=== PATIENT | female | born 1945 | race African-American/Black ===

== ENCOUNTER 2018-08-26 20:28 | Inpatient (IN) | payer MEDICARE, MEDICAID ==
[~2018-08-26] VITALS: Ht 157.5 cm; Wt 89.8 kg
--- NOTE | ~2018-08-26 | CON ---
[address] [address] CONSULTATION Name: PEYMAN HIRSCH Room: [address] IN M.R.#: [id number] Admission: 08/26/18 Attend Phys: Yohan Shelby Discharge: Date of : 45 Report #: [id number] THIS REPORT FOR: //name// CC: Hilario Amezcua REASON FOR CONSULTATION: Elevated BUN and creatinine. HISTORY OF PRESENT ILLNESS: The patient is a 73-year-old -[place] female with multiple medical histories, who was recently admitted at [facility] on 07/15/2018, as a transfer from care home with concern of worsening left heel infection/skin rash. Prior to that, also she had hospitalization at [facility] in 06/2017. She was discharged with antibiotics and wound VAC for the left heel infection. Returned back there with same issue with worsening rash, thought to be a drug allergy. At that time, she also developed acute kidney injury with a peak creatinine of 5.8 with GFR of 9, from a baseline creatinine of about 2-2.5. She was given IV fluid with improvement in her creatinine to 2.7/GFR 21 at the time of discharge from [facility] on 07/21/2017. She presented again here because of worsening white cell count at the care home and chemistry here showed that she has elevated creatinine of 4.2, hence our consultation. Previously, she was seen by Dr. Real of [facility]. She states that she has been hydrating herself, no nausea, vomiting or diarrhea, no fever or chills at this time, has not noticed any decrease in the urine output. PAST MEDICAL HISTORY: As mentioned above, history of chronic kidney disease stage 4, baseline creatinine of 2-2.5 range, diastolic heart failure, hypertension, hyperlipidemia, diabetes mellitus, CVA with residual left hemiparesis, anemia, atrial fibrillation, gastroesophageal reflux disease, and dermatitis. ALLERGIES: THE PATIENT IS ALLERGIC TO PENICILLIN AND ZOSYN. SENIOR LIVING MEDICATIONS: Aspirin 81 mg daily, erythropoietin chris 20,000 units twice weekly, isosorbide mononitrate 30 mg daily, melatonin 3 mg at bedtime, metolazone 2.5 mg daily, torsemide 20 mg b.i.d., Lantus 12 units at bedtime, Benadryl 25 mg q.6 hours as needed, atorvastatin 20 mg daily, Baclofen 10 mg t.i.d., Humalog premeals, carvedilol 12.5 mg b.i.d., and hydralazine 50 mg daily. REVIEW OF SYSTEMS: A 12-point review of system was done and pertinent positives are mentioned in the history of present illness. All other systems are reviewed and negative. PHYSICAL EXAMINATION: VITAL SIGNS: Her blood pressure is 145/58, pulse rate of 81, respiratory rate of 18, temperature 98.4 and saturation is 97% [place] [address] CONSULTATION Name: PEYMAN HIRSCH Room: [address]#: [id number] Admission: 08/26/18 Attend Phys: Yohan Shelby Discharge: Date of : 45 Report #: [id number] GENERAL: She does not appear to be in any respiratory distress. HEENT: Normocephalic, atraumatic head. [place] conjunctivae, anicteric sclerae. NECK: No JVD. Trachea midline. LUNGS: Sounds are diminished bilaterally. No wheezing. ABDOMEN: Soft, nontender, positive bowel sounds. EXTREMITIES: Showed trace edema. She has left foot wound dressing in place. NEUROLOGIC: She is alert, oriented x 3. LABORATORY DATA: Reviewed, has a sodium of 138, potassium 3.6, chloride 98, carbon dioxide 26, BUN and creatinine are 94 and 4.2, GFR of 13, lactic acid 1.1. White cell count of 22.6, hemoglobin 8.9, and platelet count is 228. IMPRESSION: 1. Acute kidney injury, on underlying chronic kidney disease stage 4, baseline creatinine 2-2.5 range. She has recurrent acute kidney injuries, most recent one being in the beginning of July 2017, at which time she had a peak creatinine of 5.8 with GFR of only 9. Acute kidney injury, likely prerenal azotemia/acute tubular necrosis, need to exclude also post-infectious glomerular nephritis. 2. Left heel infection. 3. Anemia of chronic kidney disease. 4. Essential hypertension. 5. Chronic diastolic heart failure. 6. Hyperlipidemia. 7. Diabetes mellitus type 2. 8. Cerebrovascular accident with residual hemiparesis. 9. Leukocytosis. PLAN: Records from [facility] reviewed. She has had a recent complete workup of renal insufficiency including urinalysis, which showed proteinuria and hematuria. Renal ultrasound on 07/16/2018 showed a small right cyst with no hydronephrosis. Encouraged oral hydration. Given history of her CHF, we will hold off on IV fluid for now, but we will discontinue also her diuretics. Avoid nephrotoxins. Resume Procrit for her anemia. Check iron studies. No indication for hemodialysis at present. We will continue to monitor and further recommendations to follow. By: [id number] Salas MD /scooter
--- NOTE | ~2018-08-26 | CON ---
[address] [address] CONSULTATION Name: TORREYPEYMAN Yohan Room: [address] IN M.R.#: [id number] Admission: 08/26/18 Attend Phys: Yohan Shelby Discharge: Date of : 45 Report #: [id number] THIS REPORT FOR: //name// CC: Hilario Amezcua CHIEF COMPLAINT: Followup, ulceration to left posterior calcaneus with type 2 diabetes mellitus, peripheral arterial disease with prior deep tissue infection. Arterial Doppler shows monophasic flow to the left lower extremity with low resistance. No signs of focal velocity elevation. Right distal femoral to anterior tibial artery graft is widely patent. I reviewed vascular surgery's note, awaiting medical records from [facility] regarding prior vascular studies. Left heel culture growing gram-positive cocci. Blood cultures negative x 2. She is on parenteral ceftriaxone with good tolerance. She has remained afebrile, alert and oriented with no pain to either extremity. She has remained nonambulatory with PRAFO boots to offload her heels. LABORATORY DATA: WBC 18.7, RBC 3.16, hemoglobin 8.7, hematocrit 27.6, platelets 219. BUN 90, creatinine 3.9, glucose 120. PHYSICAL EXAMINATION: Left posterior calcaneal wound appears stable with no necrosis or signs of acute vascular embarrassment to the periwound. The wound bed is mostly red granulation with some overlying yellowish slough. There is no exposed bone or tendon. There is no erythema or jeff cellulitis. IMPRESSION: Diabetic foot ulceration to left posterior calcaneus, no indication for surgery. PLAN: I ordered x-rays of the left calcaneus to have a baseline study. I do not anticipate any further surgical debridement. Continue topical wound care with Aquacel Ag and offloading in a PRAFO boot. Maximize nutrition and glycemic control. Vascular Surgery to further evaluate the patient's peripheral arterial disease. I will follow up with the patient at [facility] next Saturday afternoon with Dr. Franklin. By: 0730 [id number] Kenny DPM /scooter
--- NOTE | ~2018-08-26 | CON ---
[address] [address] CONSULTATION Name: PEYMAN HIRSCH Room: [address] IN .R.#: [id number] Admission: 08/26/18 Attend Phys: Yohan Shelby Discharge: Date of : 45 Report #: [id number] THIS REPORT FOR: //name// CC: Hilario Amezcua HISTORY OF PRESENT ILLNESS: The patient is a 73-year-old female admitted to the Emergency Department for worsening leukocytosis with left posterior calcaneal foot wound. She has a full-thickness diabetic foot ulceration to the left posterior calcaneus of several months' duration. She has been receiving care from [facility] [place], she cannot name the physicians involved in her care. She states she had prior debridement of necrotic tissue, and she states the bone was not infected per her understanding. She denies acute symptoms such as fevers, chills, nausea, malaise, body aches, dizziness, shortness of breath or chest pain. She is mostly nonweightbearing to the left foot, although she has stood on it and still appose offloading shoe for transfers and short distances. She is scheduled for arterial duplex Doppler this afternoon. Blood cultures and foot wound cultures are pending. PAST MEDICAL HISTORY: Chronic kidney disease stage III, type 2 diabetes mellitus, hypertension, hyperlipidemia, anemia, AFib, GERD, left heel ulceration, and urinary retention. ALLERGIES: PENICILLIN AND ZOSYN. LABORATORY DATA: WBC 22.6, RBC 3.21, hemoglobin 8.9, hematocrit 27.9, and platelets 228. BUN 94, creatinine 4.2 and glucose 177. Albumin 3.1. Urinalysis pending ____. PHYSICAL EXAMINATION: Large full thickness ulceration to left posterior calcaneus, Friend stage 2. The wound is roughly 6.0 x 6.0 x 0.3 cm. It is covered with red granulation with some pale overlying slough. There is no exposed bone or tendon. There is no inflammation, erythema or cardinal signs of infection. The wound margins are viable with capillary refill of roughly 1 sec. She has faintly palpable dorsalis pedis and posterior tibial pulses bilaterally. No other wounds noticed. IMPRESSION: Ulceration of left posterior calcaneus, type 2 diabetes mellitus with peripheral neuropathy and end-stage renal disease. PLAN: The wound was cleansed and redressed with Aquacel Ag, ABD, Kerlix and Victor Manuel. The patient offload in PRA boot and remain strictly nonweightbearing. We will review. No clinical infection at this time, [place] [address] CONSULTATION Name: PEYMAN HIRSCH Room: [address] IN M.R.#: [id number] Admission: 08/26/18 Attend Phys: Yohan Shelby Discharge: Date of : 45 Report #: [id number] osteomyelitis. I will order radiographs of the calcaneus and review her duplex Doppler tomorrow. I do not anticipate surgical debridement at this point. By: 1534 [id number] Kenny DPM /nt
[2018-08-26 20:31] VITALS: BP 145/58
[2018-08-26 21:16] LABS: HEMATOCRIT 27.9 % (37.0-47.0); HEMOGLOBIN 8.9 gm/dL (12.0-15.0); MCH 27.6 pg (26.0-34.0); MCHC 31.8 g/dL (28.0-37.0); MCV 86.7 fL (80.0-100.0); MPV 9.4 fl. (7.2-11.1); NUCLEATED RBCS 0 /100WBC; PLATELET COUNT* 228 thou/uL (150-400); RBC 3.21 mil/uL (4.20-5.00); RDW-CV 16.6 % (10.5-14.5); WBC 22.6 thou/uL (4.0-11.0)
[2018-08-26 21:26] LABS: CALCIUM 8.5 mg/dL (8.5-10.1); CREATININE 4.2 mg/dL (0.6-1.3); POTASSIUM 3.6 mmol/L (3.5-5.1)
[2018-08-26 21:31] LABS: ALBUMIN 3.1 g/dL (3.4-5.0); TOTAL BILIRUBIN 0.4 mg/dL (<0.1-1.0); TOTAL PROTEIN 8.4 g/dL (6.4-8.2)
[2018-08-26 21:39] LABS: ABSOLUTE EOSINOPHILS 0.9 thou/uL (0.0-0.7); ABSOLUTE LYMPHOCYTES 1.8 thou/uL (0.8-5.3); ABSOLUTE MONOCYTES 1.1 thou/uL (0.0-1.2); ABSOLUTE NEUTROPHILS 18.8 thou/uL (1.6-8.1)
[2018-08-26 21:40] LABS: ANISOCYTOSIS Occasional; LARGE PLATELETS RARE; PLATELET ESTIMATE ADEQUATE
[2018-08-26] MEDS ORDERED: TYLENOL325 MG PO (21:43)
[2018-08-26] MEDS ORDERED: ALBUTEROL2.5 MG/31 INH (21:44)
[2018-08-26] MEDS ORDERED: VITAMINC500 PO (21:45)
[2018-08-26] MEDS ORDERED: EPOGEN20000 UNI2 INJECTION (21:45)
[2018-08-26] MEDS ORDERED: LIORESAL 10 MG10 MG PO (21:45)
[2018-08-26] MEDS ORDERED: IMDUR 30 MG TAB30 M1 PO (21:45)
[2018-08-26] MEDS ORDERED: ASPIR 8181 MG PO (21:45)
[2018-08-26] MEDS ORDERED: METOLAZONE 2.52.5 MG PO (21:46)
[2018-08-26] MEDS ORDERED: DEMADEX20 MG PO (21:46)
[2018-08-26] MEDS ORDERED: MELATIN3 MG PO (21:46)
[2018-08-26] MEDS ORDERED: TRIAMCINOLONE A80 G2 TOP (21:46)
[2018-08-26] MEDS ORDERED: HUMALOG100 UNIT/1 SUBQ (21:47)
[2018-08-26] MEDS ORDERED: BENADRYL25 MG PO (21:47)
[2018-08-26] MEDS ORDERED: HYDROXYZINE HCL25 M1 PO (21:47)
[2018-08-26] MEDS ORDERED: LANTUS100 UNIT/M SUBQ (21:47)
[2018-08-26] MEDS ORDERED: LIPITOR 20 MG T20 M1 PO (21:48)
[2018-08-26] MEDS ORDERED: CLARITIN10 MG PO (21:48)
[2018-08-26] MEDS ORDERED: HYDRALAZINE 5050 MG PO (21:48)
[2018-08-26] MEDS ORDERED: CARVEDILOL12.5 MG PO (21:48)
[2018-08-26 23:41] VITALS: BP 144/67
[2018-08-27] VITALS: BP 117/54
--- NOTE | 2018-08-27 02:07 | NUR ---
0000 ALERT AND ORIENTED X 4 FEMALE TO BED 101 BY WHEELCHAIR FROM ER IN STABLE CONDITION. TRANSFERED TO BED WITH 2 ASSIST STAND PIVOT TO MAINTAIN NWB LEFT HEEL. VITAL SIGNS STABLE. ADMISSION ROUTINES IN PROGRESS. CONTINUE TO MONITOR.
--- NOTE | 2018-08-27 05:00 | NUR ---
PATIENT HAS REMAINED ALERT AND ORIENTED X 4 THROUGHOUT THE SHIFT AND RESTING QUIETLY ON HOURLY ROUNDS. TURNED Q2H. HEELS ELEVATED OFF OF BED. INC OF URINE. CHANGED WITH TURNS. HOME MED LIST UPDATED IN [facility] FOR PHYSICIAN REVIEW. CONSULTS TODAY FOR WOUND AND NEPHROLOGY. CONTINUE TO MONITOR.
[2018-08-27 08:05] VITALS: BP 146/47
--- NOTE | 2018-08-27 10:59 | NUR ---
WOUND NURSE-PATIENT ADMITTED LAST EVENING ON 08/26/18 WITH DIABETIC FOOT ULCER AND LEUKOCYTOSIS. PATIENT ABLE TO PROVIDE SOME HISTORY, BUT NOT CLEAR ON TIME FRAMES - HEEL WOUND DEVELOPED WHILE SHE WAS AT [facility] THEN SHE WAS TRANSFERRED TO [facility] FOR APPROXIMATELY ONE WEEK, THEN READMITTED TO [facility], AND TRANSFERRED TO [facility]. AT SOME POINT, HER HEEL WAS DEBRIDED AND A WOUND VAC APPLIED. SHE IS NON-AMBULATORY, BUT HAS BEEN TRYING TO WALK WITH THERAPY. LEFT HEEL WITH STAGE 4 PRESSURE ULCER, SHE REPORTS THAT WITH DEBRIDEMENT IT WAS DOWN TO BONE, BUT THEY DETERMINED NO INFECTION IN BONE. WOUND BASE WITH APPROXIMATELY 20% YELLOW/LUNA SLOUGH ON PALE PINK, MOIST BASE. DRAINING MODERATE AMOUNTS OF LIGHT BROWN, PURULENT, MALODOROUS DRAINAGE. SURROUNDING SKIN INTACT WITH NO ERYTHEMA, INDURATION OR FLUCTUANCE BUT EXTREMELY TENDER TO TOUCH. BOTH FEET CLEANSED WELL WITH SKIN CLEANSER, REMOVING LOOSELY ADHERENT SKIN AND DEBRIS, WITH SOME IMPROVEMENT IN APPEARANCE AND ODOR. RIGHT FOOT INTACT WITH PRIOR 5TH TOE AMPUTATION (PT NOT SURE REASON), NO OTHER OPEN OR REDDENED AREAS, WITH HEEL INTACT. PEDAL PULSES STRONGLY PALPABLE ON RIGHT, BUT VERY DIFFICULT TO PALPATE ON LEFT DUE TO CONTINUOUS TREMOR. EVENTUALLY ABLE TO AUSULTATE WEAK PEDAL PULSES ON LEFT (MARKED). DISCUSSED WT DR CRAMER, AND WOUND CULTURE OBTAINED AND SENT AFTER CLEANSING. MOISTURIZER TO INTACT SKIN, AND WOUND COVERED WITH AQUACEL AG, SECURED WTIH ROLLED GAUZE. BILATERAL HEEL BOOTS APPLIED. COCCYX AREA WITH SMALL WOUND THAT PATIENT ATTRIBUTES TO HAVING A CYST DRAINED 2 YEARS AGO, BUT APPEARS NOW A SMALL STAGE 3 PRESSURE ULCER - 1.6 X 0.6 X 0.3 CM. WOUND BASE PINK & MOIST, NO NECROTIC TISSUE OR DRAINAGE. SURROUNDING SKIN ON BUTTOCKS AND PERINEUM VERY MACERATED. PATIENT INCONTINENT OF MODERATE AMOUNT OF URINE ON ABSORBENT PAD. PERINEUM AND BUTTOCKS CLEANSED WELL WITH SKIN CLEANSER, RINSED WELL, PATTED DRY. SMALL FOAM BORDERED DRESSING TO OPEN AREA, AND MOISTURE BARRIER CREAM TO INTACT SKIN. RECOMMENDATIONS: -WOUND CARE ORDERED, POSSIBLE REAPPLICATION WOUND VAC AFTER INFECTION IMPROVES -REPOSITION EVERY 2 HOURS WITH FOAM WEDGES -BILATERAL HEEL BOOTS -ROUTINE PERINEAL CARE -ENCOURAGE HIGH PROTEIN, WELL-BALANCED DIET TO PROMOTE HEALING
--- NOTE | 2018-08-27 11:00 | EKG ---
[place] [address] ELECTROCARDIOGRAM REPORT Name: TORREYPEYMAN Yohan Room: [address] ADM IN [facility]#: [id number] Admission: 08/26/18 Attend Phys: Yohan Shelby Discharge: Date of : 45 Report #: [id number] THIS REPORT FOR: //name// [facility] ED Test Date: 2018-08-26 Test Time: 21:47:45 Pat Name: PEYMAN HIRSCH Department: Room: [facility] Gender: F Volunteer Specialist: MERCEDES : 1945 Requested By: Kamaljit Hoffman Order Number: [id number] MD: Julio Cesar Peck Measurements Intervals [place] Rate: 80 P: 64 [place]: 171 QRS: 1 QRSD: 112 T: 65 QT: 408 QTc: 471 Interpretive Statements Sinus rhythm Atrial premature complex Borderline intraventricular conduction delay No previous ECG available for comparison Electronically Signed On 08-27-2018 11:00:26 CDT by Julio Cesar Peck [email or web address] <ELECTRONICALLY SIGNED> By: Julio Cesar Peck MD, [facility] 08/27/18 1100 46 46 Julio Cesar Peck MD, FACC /EPI
--- NOTE | 2018-08-27 14:30 | NUR ---
SPOKE WITH BRIEFLY WITH PT. SHE WAS GOING OFF FLOOR FOR A TEST. CM CALLED MIO/[facility]. 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 SHE IS BEING SKILLED AT THIS TIME SINCE HER DISCHARGE FROM HOSPITAL. SHE RETURNED 12 DAYS AGO. CM WILL SEE PT.AGAIN TOMORROW.
[2018-08-27 16:33] VITALS: BP 129/48
--- NOTE | 2018-08-27 17:19 | NUR ---
PATIENT RESTING IN BED. PATIENT SAT AT SIDE OF BED MOST OF DAY. PATIENT HAS COMPLAINTS OF ITCHING TO BACK AND LEGS. ARIELA HILL BY DR GILLESPIE AND WOUND CARE NURSE TODAY, WOUND DRESSING CHANGED AND CULTURES SENT. PATIENT DENIES ANY PAIN. PATIENT HAS GOOD APPETITE. PATIENT DENIES ANY NEEDS AT THIS TIME. CALL LIGHT WITHIN REACH. WILL CONTINUE TO MONITOR.
[2018-08-27 20:30] VITALS: BP 144/56
[2018-08-28 04:12] LABS: ABSOLUTE BASOPHILS 0.1 thou/uL (0.0-0.2); ABSOLUTE EOSINOPHILS 0.7 thou/uL (0.0-0.7); ABSOLUTE MONOCYTES 1.5 thou/uL (0.0-1.2); ABSOLUTE NEUTROPHILS 14.5 thou/uL (1.6-8.1); BASOPHILS 0.4 %; EOSINOPHILS 3.6 %; HEMATOCRIT 27.6 % (37.0-47.0); HEMOGLOBIN 8.7 gm/dL (12.0-15.0); LYMPHOCYTES 10.7 %; MCH 27.4 pg (26.0-34.0); MCHC 31.5 g/dL (28.0-37.0); MCV 87.1 fL (80.0-100.0); MPV 10.3 fl. (7.2-11.1); NUCLEATED RBCS 0 /100WBC; PLATELET COUNT* 219 thou/uL (150-400); POLYS 77.3 %; RBC 3.16 mil/uL (4.20-5.00); WBC 18.7 thou/uL (4.0-11.0)
[2018-08-28 04:32] LABS: CALCIUM 8.6 mg/dL (8.5-10.1); CREATININE 3.9 mg/dL (0.6-1.3); POTASSIUM 3.7 mmol/L (3.5-5.1)
--- NOTE | 2018-08-28 05:02 | NUR ---
PATIENT HAS REMAINED ALERT AND ORIENTED X 4 THROUGHOUT THE SHIFT. Q2H TURNS PATIENT ALLOWED. SAT AT BEDSIDE FOR 2 HOURS DURING THE NIGHT. CONTINUES TO STATE FEELS VERY ITCHY. VISTERIL PROVIDED WHICH DID NOT HELP VERY MUCH. DRESSINGS INTACT TO LEFT FOOT AND COCCYX. VITAL SIGNS STABLE. CONTINUE TO MONITOR.
[2018-08-28 08:00] VITALS: BP 170/70
--- NOTE | 2018-08-28 11:48 | CON ---
[address] [address] CONSULTATION Name: TORREYPEYMAN Yohan Room: [address] IN .R.#: [id number] Admission: 08/26/18 Attend Phys: Yohan Shelby Discharge: Date of : 45 Report #: [id number] THIS REPORT FOR: //name// CC: Hilario Amezcua DATE OF SERVICE: 08/27/2018 INFECTIOUS DISEASE CONSULTATION ATTENDING PHYSICIAN: Terrance Amezcua MD REASON FOR EVALUATION: Diabetic foot wound, left heel, complicated by infection. HISTORY OF PRESENT ILLNESS: Chart reviewed, the patient examined. A 73-year-old woman with diabetes mellitus type 2, apparently history of vasculopathy as a later stage and kidney disease, who does reside in a facility and she estimates of roughly 2 months of issue with the foot ulcer. She has been undergoing wound care with wound VAC for at least 2 months. We noted some necrosis; however, she was referred for abnormal labs including a white count was elevated to 22.6. She was noted to be approaching end-stage renal disease with a creatinine of ____ and albumin is low at 3.1. She denies any particular systemic illness. No fevers or chills. Appetite has generally been satisfactory. No pulmonary or gastrointestinal related complaints. Due to concern about a possible infection, she was placed on therapy with ceftriaxone. She notes she had a previous history of some sort of reaction to Zosyn, although it sounds more typical of a candidiasis. She is not encephalopathic. She is to be evaluated by Podiatry as well. ALLERGIES: LISTED TO PENICILLIN, reportedly causes flushing and urticaria. CURRENT MEDICATIONS: Include atorvastatin, insulin glargine, albuterol, torsemide, metolazone, carvedilol, insulin lispro, isosorbide mononitrate, aspirin, ascorbic acid, pantoprazole, baclofen, p.r.n. analgesics and antiemetics. PAST MEDICAL HISTORY: As noted above, diabetes mellitus complicated by peripheral neuropathy, vasculopathy, end-stage renal disease, history of hypertension, hyperlipidemia, chronic anemia, atrial fibrillation, and reflux. SOCIAL HISTORY: Nonsmoker, no ethanol, and no illicit drug use. FAMILY HISTORY: Noncontributory. REVIEW OF SYSTEMS: As noted above, 10-point [place] [address] CONSULTATION Name: PEYMAN HIRSCH Yohan Room: [address] IN [facility]#: [id number] Admission: 08/26/18 Attend Phys: Yohan Shelby Discharge: Date of : 45 Report #: [id number] unremarkable with exception noted in history of present illness. PHYSICAL EXAMINATION: GENERAL: Pleasant and cooperative, appears somewhat chronically ill, undernourished. She is lucid, mild distress. VITAL SIGNS: Temperature 99.3, pulse 78, respirations 18, and blood pressure 146/47. SKIN: Warm. HEENT: Neck is supple. Extraocular muscles are intact. Normocephalic. HEART: Irregular. Soft systolic murmur. LUNGS: Diminished breath sounds. Few scattered crackles at the bases. ABDOMEN: Soft, nontender, and nondistended. EXTREMITIES: Left foot has a dressing in place, suggests evidence of some ischemic changes. GENITOURINARY AND RECTAL: Deferred. LABORATORY/RADIOLOGIC DATA: Blood cultures are sterile thus far. Chest x-ray, minor bibasilar atelectasis. CBC: White count of 22.6, hemoglobin and hematocrit 8.9 and 27.9, platelets of 228 and some eosinophilia of 900. Lactic acid 1.1. Electrolytes: Sodium 138, potassium 3.6, chloride 90, bicarbonate is 26, anion gap of 14, BUN and creatinine 94 and ____ and glucose of 177. LFTs are unremarkable. Albumin of 3.1 and total protein of 8.4. ASSESSMENT AND PLAN: Left heel ulcer in the setting of diabetes mellitus. We will continue empiric therapy and localized wound care. We will discuss with Dr. Kenny. She has been evaluated at another facilities, try to obtain records. Order her arterial Doppler. I think we can better define level of perfusion in her lower extremity. At this point, she is not overtly toxic and in no particular discomfort. Continue wound care as prescribed. <ELECTRONICALLY SIGNED> By: Roger Franklin MD 08/28/18 1148 [id number] [id number] Franklin MD /nt
[2018-08-28 16:30] VITALS: BP 153/62
--- NOTE | 2018-08-28 18:01 | NUR ---
PATIENT RESTING IN BED. PATIENT DENIES ANY PAIN. PATIENT HAS BEEN UP TO EDGE OF BED. PATIENT HAS FAIR APPETITE. DRESSING CHANGED TO LEFT HEEL THIS MORNING. PATIENT HAS COMPLAINTS OF ITCHING, BENADRYL GIVEN WITH PARTIAL RELIEF. PATIENT DENIES ANY NEEDS AT THIS TIME. CALL LIGHT WITHIN REACH. WILL CONTINUE TO MONITOR.
[2018-08-28 20:00] VITALS: BP 164/66
--- NOTE | 2018-08-29 05:40 | NUR ---
ASSESSMWENT: PT REMAIN ALERT AND ORIENT TIMES THREE. DENIES PAIN AND REFUSED PRN PAIN MEDS. LEFT HEEL WOUND DRESSED AND PUT IN A PRAFO BOOT. DRESSING C/D/I. BP ELEVATED, NO PRN MEDS GIVEN, NOT INDICATED. DOES HAVE BP MEDS TO RECEIVE IN THE AM. TURNED EVERY TWO HOURS. DENIES ITICHING THIS SHIFT, DID STATE THAT THE BENEDRYL AND THE OINTMENT WORKS WELL. LIKES TO SAT ON THE SIDE OF THE BED FOR LONG PERIODS OF TIMES. SLOW PROGRES TOWARDS DC GOALS, WILL CONTINUE TO MONITOR.
[2018-08-29 07:30] VITALS: BP 153/68
[2018-08-29 08:05] VITALS: BP 153/68
[2018-08-29 08:19] LABS: ABSOLUTE BASOPHILS 0.2 thou/uL (0.0-0.2); ABSOLUTE LYMPHOCYTES 1.5 thou/uL (0.8-5.3); ABSOLUTE MONOCYTES 1.5 thou/uL (0.0-1.2); EOSINOPHILS 6.3 %; HEMATOCRIT 26.8 % (37.0-47.0); HEMOGLOBIN 8.7 gm/dL (12.0-15.0); LYMPHOCYTES 9.1 %; MCH 27.8 pg (26.0-34.0); MCHC 32.4 g/dL (28.0-37.0); MCV 85.9 fL (80.0-100.0); MONOCYTES 9.1 %; MPV 9.9 fl. (7.2-11.1); NUCLEATED RBCS 0 /100WBC; PLATELET COUNT* 218 thou/uL (150-400); POLYS 74.5 %; RBC 3.12 mil/uL (4.20-5.00); RDW-CV 16.3 % (10.5-14.5); WBC 16.1 thou/uL (4.0-11.0)
[2018-08-29 08:30] LABS: ALBUMIN 2.8 g/dL (3.4-5.0); CALCIUM 8.4 mg/dL (8.5-10.1); CREATININE 3.5 mg/dL (0.6-1.3); POTASSIUM 3.6 mmol/L (3.5-5.1); TOTAL BILIRUBIN 0.3 mg/dL (<0.1-1.0); TOTAL PROTEIN 8.1 g/dL (6.4-8.2)
--- NOTE | 2018-08-29 16:44 | NUR ---
PT REMAINED ALERT AND ORIENTED. PT RESTING IN ROOM. PT UP TO CHAIR FOR DINNER. DRESSING CHANGED BY PODIATRY TODAY. FALL RISK PRECAUTIONS IN PLACE. HOURLY ROUNDING COMPLETED. WILL CONTINUE TO MONITOR.
[2018-08-29 16:52] VITALS: BP 142/59
[2018-08-29 20:00] VITALS: BP 150/89
[2018-08-29 21:05] LABS: GLOBULIN TOTAL 4.1 g/dL (2.2-3.9); M-SPIKE Not Observed g/dL (Not Observed)
[2018-08-30 07:45] VITALS: BP 136/61
--- NOTE | 2018-08-30 10:23 | NUR ---
Received d/c order from physician. Spoke with community health education coordinator at [facility] and they are able to accept today. Faxed requested paperwork along with orders. Chart to be copied and sent with patient. MADDIM arranged w/c van transportation at 1300 with [employer]. Called pt's niece and she is in agreement with transfer. No other needs identified. [facility] [phone]; fax [phone] [employer] w/c van [phone]
[2018-08-30 11:02] VITALS: BP 153/68
[2018-08-30 11:05] VITALS: BP 153/68
[2018-08-30] MEDS ORDERED: KEFLEX500 M2 PO (11:18)
[2018-08-30 11:21] VITALS: BP 153/68
[2018-08-30 12:19] VITALS: BP 153/68
--- NOTE | 2018-08-30 12:53 | NUR ---
PT DRESSING CHANGED AND PICTURES TAKEN. CHART COPIED. IV REMOVED. PT BELONGINGS GATHERED AND DRESSED. REPORT CALLED TO FACILITY. PT LEFT VIA WHEELCHAIR WITH TRANSPORTER TO [facility]. FALL RISK PRECAUTIONS IN PLACE. HOURLY ROUNDING COMPLETED.
== END 2018-08-30 12:54 | disposition short-term general hospital (02) | DRG 871 ==
LOC: M.ERS 20:28 → M.TBA-ER 22:15 → M.ORTHSURG 22:15
PROVIDERS: Internal Medicine; Nurse Practitioner Psychiatric/Mental Health; Specialist; ADMIT Internal Medicine
DX: A41.9 Sepsis, unspecified organism (principal); N17.0 Acute kidney failure with tubular necrosis; N18.6 End stage renal disease; L97.429 Non-pressure chronic ulcer of left heel and midfoot with unspecified severity; I69.354 Hemiplegia and hemiparesis following cerebral infarction affecting left non-dominant side; I50.32 Chronic diastolic (congestive) heart failure; M31.9 Necrotizing vasculopathy, unspecified; I13.2 Hypertensive heart and chronic kidney disease with heart failure and with stage 5 chronic kidney disease, or end stage renal disease; E11.621 Type 2 diabetes mellitus with foot ulcer; E11.22 Type 2 diabetes mellitus with diabetic chronic kidney disease; I27.20 Pulmonary hypertension, unspecified; E78.5 Hyperlipidemia, unspecified; I48.91 Unspecified atrial fibrillation; G47.00 Insomnia, unspecified; K21.9 Gastro-esophageal reflux disease without esophagitis; D63.1 Anemia in chronic kidney disease; E11.42 Type 2 diabetes mellitus with diabetic polyneuropathy; E11.51 Type 2 diabetes mellitus with diabetic peripheral angiopathy without gangrene; Z89.421 Acquired absence of other right toe(s); Z88.1 Allergy status to other antibiotic agents; Z88.0 Allergy status to penicillin; Z88.8 Allergy status to other drugs, medicaments and biological substances

== ENCOUNTER → 2018-09-17 | Outpatient (CLI) | payer MEDICARE, MEDICAID ==
[~2018-09-17] MED LIST: ALBUTEROL2.5 MG/31 INH; ASPIR 8181 MG PO; BENADRYL25 MG PO; CARVEDILOL12.5 MG PO; CLARITIN10 MG PO; DEMADEX20 MG PO; EPOGEN20000 UNI2 INJECTION; HUMALOG100 UNIT/1 SUBQ; HYDRALAZINE 5050 MG PO; HYDROXYZINE HCL25 M1 PO; IMDUR 30 MG TAB30 M1 PO; KEFLEX500 M2 PO; LANTUS100 UNIT/M SUBQ; LIORESAL 10 MG10 MG PO; LIPITOR 20 MG T20 M1 PO; MELATIN3 MG PO; METOLAZONE 2.52.5 MG PO; TRIAMCINOLONE A80 G2 TOP; TYLENOL325 MG PO; VITAMINC500 PO
--- NOTE | 2018-09-18 12:56 | CON ---
[address] [address] CONSULTATION Name: PEYMAN HIRSCH Room: [facility] Trisha#: [id number] Admission: 09/17/18 Attend Phys: Eugenio Kenny DPM Discharge: Date of : 45 Report #: [id number] THIS REPORT FOR: //name// CC: Eugenio HINES PCP DATE OF SERVICE: 09/17/2018 INFECTIOUS DISEASE CONSULTATION FOLLOWUP ATTENDING PHYSICIAN: Dr. Eugenio Pastrana. Here for chronic ulceration involving her left heel, complicated by deep infection including involvement of the tendon. The patient returns today in followup for ongoing wound care. She has been on systemic antibiotics. On return today, the wound is apparently significantly worse with additional necrosis including now more exposed tendon. It does track up several centimeters. She typically has a little pain associated with it. It is increased somewhat. She has not been systemically ill. Denies any fevers or chills. Appetite has been generally good. No pulmonary, GI related complaints. The wound was debrided by Dr. Eugenio Kenny. Deep left heel infection based on recent culture with growth of Enterococcus faecalis as well as Proteus mirabilis, the latter being quite susceptible. We will add coverage for the enterococcus. She is PENICILLIN allergic and appears to be urticaria and this is fairly recent. We will add linezolid to her regimen including cefpodoxime to see how she does clinically. There is a significant concern about simply inadequate perfusion, which can be asked for reevaluation by Vascular Surgery. We will see her in 1 week. <ELECTRONICALLY SIGNED> By: Roger Franklin MD 09/18/18 1256 [id number] [id number] Franklin MD /nt
== END ==
LOC: M.WC 03:32
DX: E11.621 Type 2 diabetes mellitus with foot ulcer (principal); L97.425 Non-pressure chronic ulcer of left heel and midfoot with muscle involvement without evidence of necrosis; E11.51 Type 2 diabetes mellitus with diabetic peripheral angiopathy without gangrene; E11.42 Type 2 diabetes mellitus with diabetic polyneuropathy; E78.5 Hyperlipidemia, unspecified; I11.0 Hypertensive heart disease with heart failure; I50.9 Heart failure, unspecified; K21.9 Gastro-esophageal reflux disease without esophagitis; Z89.411 Acquired absence of right great toe; Z79.4 Long term (current) use of insulin; Z79.82 Long term (current) use of aspirin

== ENCOUNTER → 2018-09-24 | Outpatient (CLI) | payer MEDICARE, MEDICAID ==
--- NOTE | 2018-09-25 12:53 | CON ---
[address] [address] CONSULTATION Name: PEYMAN HIRSCH Room: [facility] Trisha#: [id number] Admission: 09/24/18 Attend Phys: Eugenio Kenny DPM Discharge: Date of : 45 Report #: [id number] THIS REPORT FOR: //name// CC: Eugenio Kenny NO PCP DATE OF SERVICE: 09/24/2018 INFECTIOUS DISEASE CONSULTATION ATTENDING PHYSICIAN: Eugenio Kenny DPM HISTORY OF PRESENT ILLNESS: The patient returns in followup for ongoing wound care as well as treatment for suspected deep infection involving her left heel. She is post partial calcaneal removal. She has got a chronic wound at that site. She continues to wear offloading shoes. She is limited in her activity and is unable to ambulate. She does have degree of swelling. She denies any particular pain unless wound is manipulated. On evaluation, I do not believe there is any exposed bone at this point. There is a moderate degree of debris, exudate, some nonviable tissue. She has been on combination therapy treatment of Enterococcus as well as Proteus with cefpodoxime as well as linezolid and she says she is tolerating that well. Deep seated left heel infection. We will continue current approach, at least an additional week. We will see her back at that time. Wound care and offloading as per Dr. Kenny as well as edema control. She is encouraged to increase her protein intake. We will monitor with weekly labs. As noted, her sed rate was down to 100 from around 110. <ELECTRONICALLY SIGNED> By: Roger Franklin MD 09/25/18 [id number] Franklin MD /nt
== END ==
LOC: M.WC 05:25
DX: E11.621 Type 2 diabetes mellitus with foot ulcer (principal); L97.522 Non-pressure chronic ulcer of other part of left foot with fat layer exposed; E11.51 Type 2 diabetes mellitus with diabetic peripheral angiopathy without gangrene; E11.42 Type 2 diabetes mellitus with diabetic polyneuropathy; E78.5 Hyperlipidemia, unspecified; I11.0 Hypertensive heart disease with heart failure; I50.9 Heart failure, unspecified; I87.2 Venous insufficiency (chronic) (peripheral); K21.9 Gastro-esophageal reflux disease without esophagitis